=== PATIENT | female | born 1950 | race Caucasian/White ===

== ENCOUNTER → 2017-01-21 | Outpatient (CLI) | payer OTHER | LOC: FIMAGING 12:03 | PROVIDERS: ATTEND Internal Medicine | DX: Z12.39 Encounter for other screening for malignant neoplasm of breast (principal); R92.2 Inconclusive mammogram | CPT/HCPCS: G0206 ==

== ENCOUNTER → 2017-07-12 | Outpatient (CLI) | payer OTHER | LOC: FIMAGING 11:56 | PROVIDERS: ATTEND Internal Medicine | DX: Z12.31 Encounter for screening mammogram for malignant neoplasm of breast (principal); Z13.820 Encounter for screening for osteoporosis; M85.80 Other specified disorders of bone density and structure, unspecified site | CPT/HCPCS: G0202 ==

== ENCOUNTER → 2017-08-06 | Outpatient (CLI) | payer OTHER ==
[~2017-08-06] MED LIST: IOPAMIDOL (ISOVUE 370) 100 ML BTL IV ONE
== END ==
LOC: FIMAGING 13:55
PROVIDERS: ATTEND Internal Medicine Cardiovascular Disease
DX: I28.1 Aneurysm of pulmonary artery (principal)
CPT/HCPCS: 71275; Q9967

== ENCOUNTER → 2018-06-18 | Outpatient (CLI) | payer OTHER | LOC: FIMAGING 16:58 | PROVIDERS: ATTEND Internal Medicine | DX: M79.671 Pain in right foot (principal); M19.071 Primary osteoarthritis, right ankle and foot ==

== ENCOUNTER 2018-07-16 09:00 | Emergency (ER) | payer OTHER ==
--- NOTE | 2018-07-16 09:25 | EDPHY ---
H & P Time Seen by Provider: 07/16/18 09:08 HPI/ROS: CHIEF COMPLAINT: Left upper back pain HISTORY OF PRESENT ILLNESS: Patient had symptoms starting mid day on Saturday 2 days ago. She describes it is a stabbing and not a tearing pain in her left posterior chest under where her bra sits. It is worse with deep breathing and turning to the side. Associated with cough or fever or dizziness or syncope. She has some nausea today with breakfast. Was a little bit better with Advil and Tylenol but today it is worse. Symptoms moderate. Not associated with any recent injury and no radiation, including specifically does not radiate to the back. REVIEW OF SYSTEMS: Eye: no change in vision ENT: no sore throat Cardiac: HPI Pulmonary: no cough or SOB Abdomen: no vomiting, diarrhea, abdominal pain Musculoskeletal: HPI Skin: no rash Neuro: no headache Constitutional: no fever : no urinary symptoms A comprehensive 10 point review of systems is otherwise negative aside from elements mentioned in the history of present illness. PAST MEDICAL HISTORY: Includes L4-5 fusion and Chiari surgery by Dr. Crowe in 2007 , right ventricular aneurysm and an arrhythmia on flecainide Family history: Negative for VTE Social history: Works on Oncology. No recent travel or immobilization. General Appearance: Alert and conversant, cooperative. Eyes: No scleral icterus. ENT, Mouth: Normal mucous membranes. Respiratory: Normal respiratory effort, breath sounds equal, lungs are clear to auscultation. No splinting. Cardiovascular: Regular rate and rhythm. No murmurs. Radial pulses symmetric. Gastrointestinal: Abdomen is soft and non tender. Neurological: Alert, face symmetric, normal motor and sensory in extremities. Skin: Warm and dry, no rashes. No zoster. Musculoskeletal: No peripheral edema. No calf tenderness. Mild tenderness to palpation in the left posterior chest at the area of symptoms. Psychiatric: Not agitated. Emergency Department course/MDM: Differential diagnosis considered for chest pain including but not limited to myocardial ischemia, aortic dissection, pericarditis, pulmonary embolus, chest wall pain, pleural inflammation and pulmonary infectious causes. EKG, chest x-ray, troponin and D-dimer. Symptoms would make ACS unlikely. Results discussed with the patient, including D-dimer of 0.68 which is slightly less than 0.1 times age. Low pretest probability for pulmonary embolism; I think this result makes pulmonary embolism unlikely. Patient states she is comfortable with symptomatic treatment and discharge, she does not want any narcotic medication. We discussed Tylenol, Advil, [id number] lidocaine patches as needed. Smoking Status: Never smoked Constitutional: Initial Vital Signs Temperature (C) 36.8 C 07/16/18 09:04 Heart Rate 82 07/16/18 09:04 Respiratory Rate 16 07/16/18 09:04 Blood Pressure 163/92 H 07/16/18 09:04 O2 Sat (%) 93 07/16/18 09:04 O2 Delivery Mode Room Air Allergies/Adverse Reactions: Penicillins Allergy (Verified 07/16/18 09:04) Sulfa (Sulfonamide Antibiotics) Allergy (Verified 07/16/18 09:04) Home Medications: Medication Instructions Recorded FLECAINIDE ACETATE [Tambocor] 100 mg PO BID 01/06/11 Medical Decision Making - Diagnostics EKG Interpretation: 12-lead EKG interpreted by me; official reading is in computer system. My interpretation is sinus rhythm with borderline prolonged QT, no ischemic changes. Imaging Results: Imaging Impressions Chest X-Ray 07/16/18 09:23 Impression: Stable mild cardiomegaly, with no acute intrathoracic abnormality observed. Imaging: I viewed and interpreted images myself Differential Diagnosis: Differential diagnosis considered for chest pain including but not limited to myocardial ischemia, aortic dissection, pericarditis, pulmonary embolus, chest wall pain, pleural inflammation and pulmonary infectious causes. - Data Points Laboratory Results: Laboratory Results 07/16/18 09:30 07/16/18 09:30 07/16/18 07/16/18 07/16/18 09:30 09:30 09:30 WBC RBC Hgb Hct MCV MCH MCHC RDW Plt Count MPV Neut % (Auto) Lymph % (Auto) Webb % (Auto) Eos % (Auto) Baso % (Auto) Nucleat RBC Rel Count Absolute Neuts (auto) Absolute Lymphs (auto) Absolute Monos (auto) Absolute Eos (auto) Absolute Basos (auto) Absolute Nucleated RBC Immature Gran % Immature Gran # D-Dimer 0.68 ug/mLFEU H ug/mLFEU (0.00-0.50) Sodium 140 mEq/L mEq/L (135-145) Potassium 5.0 mEq/L mEq/L (3.3-5.0) Chloride 108 mEq/L mEq/L (97-110) Carbon Dioxide 21 mEq/l L mEq/l (22-31) Anion Gap 11 mEq/L mEq/L (6-14) BUN 20 mg/dL mg/dL (7-23) Creatinine 0.9 mg/dL mg/dL (0.6-1.0) Estimated GFR > 60 Glucose 87 mg/dL mg/dL (70-100) Calcium 9.1 mg/dL mg/dL (8.5-10.4) POC Troponin I 0.00 ng/mL ng/mL (0.00-0.08) Specimen Hemolysis 126 07/16/18 09:30 WBC 6.04 10^3/uL 10^3/uL (3.80-9.50) RBC 4.74 10^6/uL 10^6/uL (4.18-5.33) Hgb 14.7 g/dL g/dL (12.6-16.3) Hct 44.2 % % (38.0-47.0) MCV 93.2 fL fL (81.5-99.8) MCH 31.0 pg pg (27.9-34.1) MCHC 33.3 g/dL g/dL (32.4-36.7) RDW 13.2 % % (11.5-15.2) Plt Count 217 10^3/uL 10^3/uL (150-400) MPV 9.6 fL fL (8.7-11.7) Neut % (Auto) 67.1 % % (39.3-74.2) Lymph % (Auto) 22.4 % % (15.0-45.0) Webb % (Auto) 7.3 % % (4.5-13.0) Eos % (Auto) 2.6 % % (0.6-7.6) Baso % (Auto) 0.3 % % (0.3-1.7) Nucleat RBC Rel Count 0.0 % % (0.0-0.2) Absolute Neuts (auto) 4.05 10^3/uL 10^3/uL (1.70-6.50) Absolute Lymphs (auto) 1.35 10^3/uL 10^3/uL (1.00-3.00) Absolute Monos (auto) 0.44 10^3/uL 10^3/uL (0.30-0.80) Absolute Eos (auto) 0.16 10^3/uL 10^3/uL (0.03-0.40) Absolute Basos (auto) 0.02 10^3/uL 10^3/uL (0.02-0.10) Absolute Nucleated RBC 0.00 10^3/uL 10^3/uL (0-0.01) Immature Gran % 0.3 % % (0.0-1.1) Immature Gran # 0.02 10^3/uL 10^3/uL (0.00-0.10) D-Dimer Sodium Potassium Chloride Carbon Dioxide Anion Gap BUN Creatinine Estimated GFR Glucose Calcium POC Troponin I Specimen Hemolysis Point of Care Test Results: Chemistry 07/16/18 09:30 POC Troponin I 0.00 ng/mL ng/mL (0.00-0.08) Departure - Departure Disposition: Home, Routine, Self-Care Clinical Impression: Upper back pain on left side Condition: Good Instructions: Chest Pain (ED) Additional Instructions: Symptomatic treatment with Tylenol or Motrin as discussed. You can also try the [id number] lidocaine patch on the area of pain as we discussed Referrals: Linda Marx MD [Primary Care Provider] - As per Instructions
[2018-07-16 09:38] LABS: PLATELET COUNT 217 10^3/uL (150-400)
--- NOTE | 2018-07-16 09:41 | CPEKG ---
Test Reason : OPEN Blood Pressure : / mmHG Vent. Rate : 067 BPM Atrial Rate : 068 BPM P-R Int : 182 ms QRS Dur : 104 ms QT Int : 465 ms P-R-T Axes : 036 010 004 degrees QTc Int : 491 ms Sinus rhythm Borderline prolonged QT interval Confirmed by Jin Maxwell ([id number]) on 07/16/2018 9:40:51 AM Referred By: Confirmed By:Jni Maxwell
[2018-07-16 10:40] VITALS: BP 161/95
== END 2018-07-16 10:40 | disposition home or self-care (01) ==
DX: M54.6 Pain in thoracic spine (principal); Z88.0 Allergy status to penicillin; Z88.2 Allergy status to sulfonamides
CPT/HCPCS: 84484-PO

== ENCOUNTER → 2018-10-06 | Outpatient (CLI) | payer OTHER | LOC: FIMAGING 11:54 | PROVIDERS: ATTEND Internal Medicine | DX: Z12.31 Encounter for screening mammogram for malignant neoplasm of breast (principal) ==